=== PATIENT | male | born 1950 | race African-American/Black ===

== ENCOUNTER 2019-10-04 18:40 | Emergency (ER) | payer MEDICARE, MEDICAID ==
[2019-10-04 19:23] LABS: ABSOLUTE EOSINOPHILS # (AUTO) 0.1 10^3/uL (0.0-0.6); PLATELET COUNT 228 10^3/uL (150-450); TOTAL CELLS COUNTED % (AUTO) 100 %
[2019-10-04 19:28] LABS: APPEARANCE,URINE CLEAR; BILIRUBIN,URINE NEGATIVE (NEGATIVE); COLOR,URINE YELLOW; GLUCOSE, URINE NEGATIVE (NEGATIVE); KETONES,URINE NEGATIVE (NEGATIVE); LEUKOCYTE ESTERASE,URINE NEGATIVE (NEGATIVE); NITRITE,URINE NEGATIVE (NEGATIVE); PROTEIN,URINE NEGATIVE (NEGATIVE); URINE SPECIFIC GRAVITY 1.004; UROBILINOGEN,URINE NEGATIVE mg/dL (<2.0)
[2019-10-04 19:32] LABS: ABSOLUTE LYMPHOCYTES (AUTO) 1.6 10^3/uL (0.5-4.7); ABSOLUTE MONOCYTES (AUTO) 0.5 10^3/uL (0.1-1.4); ABSOLUTE NEUT (AUTO) 2.6 10^3/uL (1.7-8.2); HEMATOCRIT 41.5 % (37.9-51.0); HEMOGLOBIN 14.5 g/dL (13.5-17.0); LYMPHOCYTES % (AUTO) 32.8 % (13-45); MEAN CORPUSCULAR HEMOGLOBIN 35.7 pg (27.0-33.4); MEAN CORPUSCULAR HGB CONC 35.1 g/dL (32.0-36.0); MEAN CORPUSCULAR VOLUME 102 fl (80-97); MONOCYTES % (AUTO) 10.1 % (3-13); RED BLOOD COUNT 4.07 10^6/uL (4.35-5.55); RED CELL DISTRIBUTION WIDTH 14.6 % (11.5-14.0); SEGMENTED NEUTROPHILS % (AUTO) 54.1 % (42-78); WHITE BLOOD COUNT 4.9 10^3/uL (4.0-10.5)
[2019-10-04 19:41] LABS: ALBUMIN 4.3 g/dL (3.5-5.0); ALKALINE PHOSPHATASE 95 U/L (38-126); ANION GAP 11 (5-19); ASPARTATE AMINO TRANSFERASE 131 U/L (17-59); BILIRUBIN,DIRECT 0.1 mg/dL (0.0-0.4); BILIRUBIN,TOTAL 0.2 mg/dL (0.2-1.3); BLOOD UREA NITROGEN 9 mg/dL (7-20); CALCIUM 9.9 mg/dL (8.4-10.2); CARBON DIOXIDE 24 mmol/L (22-30); CHLORIDE 108 mmol/L (98-107); CREATINE KINASE 133 U/L (55-170); GLUCOSE 77 mg/dL (75-110); POTASSIUM 3.8 mmol/L (3.6-5.0); TOTAL PROTEIN 7.8 g/dL (6.3-8.2)
[2019-10-04 19:53] LABS: CREATINE KINASE MB 1.66 ng/mL (<4.55); TROPONIN I 0.013 ng/mL
--- NOTE | 2019-10-04 20:43 | ER Document Report ---
ED General - General Chief Complaint: ETOH Abuse Stated Complaint: LEG WEAKNESS Time Seen by Provider: 10/04/19 20:21 TRAVEL OUTSIDE OF THE [place] IN LAST 30 DAYS: No - HPI Notes: Patient is a 68-year-old male with a history of alcohol abuse presents to the ED after he had been drinking all day complaining of having on and off feet pain that is been present since retired about 4 to 5 years ago. Patient states that he walks 10 to 20 miles per day. Patient states that his feet will become tingly on occasion. Patient states that he did have a fall 8 days ago in the bathroom where he fell to the side and hit the right frontal area on the commode. Patient states he did not lose consciousness. He has not had any pains or difficulty since that incident. He is able to eat and drink without difficulty. He is urinating normally and having normal bowel movements. Patient states that he is otherwise noncompliant with medicines and has not followed up with a family doctor, but has Medicare and is looking. Denies drug allergies. Patient states that he currently does not have any feet or leg bianca ns. Denies any headache, fever, neck pain, changes in vision/speech/mentation/hearing, URI, sore throat, chest pain, palpitations, syncope, cough, shortness of breath, wheeze, dyspnea, abdominal pain, nausea/vomiting/diarrhea, urinary retention, dysuria, hematuria, loss of control of bowel or bladder, saddle anesthesia, muscle paralysis/weakness, or rash. - Related Data Allergies/Adverse Reactions: No Known Allergies Allergy (Verified 10/04/19 18:58) Past Medical History - Social History Smoking Status: Current Every Day Smoker Chew tobacco use (# tins/day): No Frequency of alcohol use: Heavy Drug Abuse: None Family History: CVA, DM, Hyperlipidemia, Hypertension Patient has suicidal ideation: No Patient has homicidal ideation: No - Past Medical History Cardiac Medical History: Reports: Hx Hypercholesterolemia, Hx Hypertension Musculoskeletal Medical History: Reports Hx Arthritis, Reports Hx Musculoskeletal Deformity Traumatic Medical History: Reports: Hx Fractures - Immunizations Immunizations up to date: Yes Hx Diphtheria, Pertussis, Tetanus Vaccination: Yes - 2013 Review of Systems - Review of Systems -: Yes All other systems reviewed and negative Physical Exam - Vital signs Vitals: Resp Pulse Ox 14 98 10/04/19 18:49 10/04/19 18:49 - Notes Notes: PHYSICAL EXAMINATION: GENERAL: Well-appearing, well-nourished and in no acute distress. A&Ox4. Answers questions appropriately. HEAD: Atraumatic, normocephalic. Non-tender. No sepulveda sign or bogginess. No hematoma. EYES: Pupils equal round and reactive to light, extraocular movements intact, sclera anicteric, conjunctiva are normal. No nystagmus. No raccoon eyes. ENT: EAC clear b/l. TM's intact b/l without erythema, fluid, or perforation. Nares patent and without discharge. oropharynx clear without exudates. No tonsilar hypertrophy or erythema. Moist mucous membranes. No sinus tenderness. No hemotympanum. NECK: Normal range of motion, supple without lymphadenopathy. No rigidity/meningismus. No midline tenderness. LUNGS: Breath sounds clear to auscultation bilaterally and equal. No wheezes rales or rhonchi. HEART: Regular rate and rhythm without murmurs, rubs, gallops. ABDOMEN: Soft, nontender, nondistended abdomen. No guarding, no rebound. Normal bowel sounds present. No CVA tenderness bilaterally. Musculoskeletal: Ext b/l: FROM to passive/active. Strength 5+/5. No deficits noted. No bony tenderness of extremities. Extremities: No cyanosis, clubbing, or edema b/l. Peripheral pulses 2+. Capillary refill less than 3 seconds. No lower extremity asymmetry. Torsten negative bilaterally. NEUROLOGICAL: NIH 0. GCS 15. Cranial nerves grossly intact. Normal speech, normal gait. Normal sensory, motor exams. No ataxia. PSYCH: Normal mood, normal affect. SKIN: Warm, Dry, normal turgor, no rashes or lesions noted. Course - Re-evaluation Re-evalutation: 10/04/19 20:44 Patient is an afebrile, well-hydrated, 68-year-old male who presents to the ED with chronic b/l feet/leg pains, currently asymptomatic, and head injury 8 days ago without any residual symptoms. Vitals are acceptable without any significant tachycardia, tachypnea, or hypoxia. PE is otherwise unremarkable for any focal neurological deficits. NIH 0, GCS 15, cranial nerves grossly intact. Labs unremarkable. No further labs or imaging warranted at this time based on H&P. Pt has been eating really well in the room. Patient states that he would like to go home and has someone he can call for a ride. Pt is able to ambulate >4 steps w/o any instability. He is nontoxic-appearing and is tolerating p.o. without any difficulties. Low suspicion for any acute glaucoma, temporal arteritis, meningitis, intracranial hemorrhage, ischemic stroke, DVT, or fracture at this time. Patient is aware that this condition can change from initial presentation and that he needs to monitor symptoms closely for any acute changes. Recheck with your PCM in 3-5 days. Return to the ED with any worsening/concerning symptoms otherwise as reviewed in discharge. Patient is in agreement. - Vital Signs Vital signs: Temp Pulse Resp BP Pulse Ox 97.4 F 14 98 10/04/19 18:57 10/04/19 18:49 10/04/19 18:49 - Laboratory Result Diagrams: 10/04/19 19:07 10/04/19 19:07 Laboratory results interpreted by me: 10/04/19 10/04/19 19:07 19:07 RBC 4.07 L MCV 102 H MCH 35.7 H RDW 14.6 H Chloride 108 H AST 131 H ALT 74 H Discharge - Discharge Clinical Impression: Bilateral foot pain, Alcohol abuse with intoxication, uncomplicated Condition: Stable Disposition: HOME, SELF-CARE Additional Instructions: Rest, Ice, Compression, Elevation Tylenol/ibuprofen as needed Avoid alcohol Light stretches daily Strength exercises as able Moist heat and massage may help F/u with your PCP in 3-5 days for a recheck Consider consult(s) with Orthopedics/physical therapy for ongoing/worsening symptoms Return to the ED with any worsening symptoms and/or development of fever, headache, chest pain, palpitations, syncope, shortness of breath, trouble breathing, abdominal pain, n/v/d, muscle weakness/paralysis, numbness/tingling, swelling, redness, or other worsening symptoms that are concerning to you. Referrals: [facility] [Provider Group] - Follow up as needed FELICITAS MARES MD [ACTIVE STAFF] - Follow up as needed RICH GUERIN MD [ACTIVE STAFF] - Follow up as needed
[2019-10-04 20:57] VITALS: BP 126/69
--- NOTE | 2019-10-05 00:26 | EKG REPORT ---
SEVERITY:- ABNORMAL ECG - SINUS RHYTHM LEFT ANTERIOR FASCICULAR BLOCK MINIMAL ST ELEVATION, ANTEROLATERAL LEADS : Confirmed by: Jorge Pina 05-Oct-2019 00:25:24
== END 2019-10-04 21:18 | disposition home or self-care (01) ==
LOC: ER 18:40
DX: M79.672 Pain in left foot (principal); M79.671 Pain in right foot; F10.129 Alcohol abuse with intoxication, unspecified; F17.200 Nicotine dependence, unspecified, uncomplicated; E78.00 Pure hypercholesterolemia, unspecified; I10 Essential (primary) hypertension
CPT/HCPCS: 36415; 80053; 81001; 82550; 82553; 84484; 85025; 93005; 93010; 99284

== ENCOUNTER 2019-12-17 19:38 | Emergency (ER) | payer MEDICARE, MEDICAID ==
--- NOTE | 2019-12-17 22:02 | ER Document Report ---
ED General - General Chief Complaint: General Weakness Stated Complaint: WEAKNESS Time Seen by Provider: 12/17/19 21:53 Information source: Patient Notes: 69-year-old male patient presenting to the emergency department chief complaint of EtOH intoxication and generalized weakness. Patient reports he recently lost to people who are close to him and he has been drinking more than usual. He denies any suicidal or homicidal ideation. He states that he has been upset over his recent losses and he has not been eating much over the past 3 days. He thinks his blood sugar may have dropped today because of this. He states that he feels well now and has no physical complaints. TRAVEL OUTSIDE OF THE [place] IN LAST 30 DAYS: No - Related Data Allergies/Adverse Reactions: No Known Allergies Allergy (Verified 10/04/19 18:58) Past Medical History - General Information source: Patient - Social History Smoking Status: Current Some Day Smoker Family History: CVA, DM, Hyperlipidemia, Hypertension Patient has homicidal ideation: No - Past Medical History Cardiac Medical History: Reports: Hx Hypercholesterolemia, Hx Hypertension Musculoskeletal Medical History: Reports Hx Arthritis, Reports Hx Musculoskeletal Deformity Traumatic Medical History: Reports: Hx Fractures - Immunizations Immunizations up to date: Yes Hx Diphtheria, Pertussis, Tetanus Vaccination: Yes - 2013 Review of Systems - Review of Systems Constitutional: Weakness -: Yes All other systems reviewed and negative Physical Exam - Vital signs Vitals: Temp 97.8 F 12/17/19 20:17 - Notes Notes: PHYSICAL EXAMINATION: GENERAL: No acute distress. HEAD: Atraumatic, normocephalic. EYES: Pupils equal round and reactive to light, extraocular movements intact, sclera anicteric, conjunctiva are normal. ENT: Nares patent, oropharynx clear without exudates. Moist mucous membranes. NECK: Normal range of motion, supple without lymphadenopathy LUNGS: Breath sounds clear to auscultation bilaterally and equal. No wheezes rales or rhonchi. HEART: Regular rate and rhythm without murmurs ABDOMEN: Soft, nontender, nondistended abdomen. No guarding, no rebound. No masses appreciated. Musculoskeletal: Normal range of motion, no pitting or edema. No cyanosis. NEUROLOGICAL: Cranial nerves grossly intact. Normal speech. Normal sensory, motor exams PSYCH: Normal mood, normal affect. SKIN: Warm, Dry, normal turgor, no rashes or lesions noted. Course - Re-evaluation Re-evalutation: 12/17/19 22:15 Patient appears well, nontoxic, vital signs within normal limits. Patient had a hypoglycemic episode earlier today. He has been drinking alcohol today. He denies any physical complaints. He is alert, oriented and able to answer all questions appropriately. Labs pending. As long as labs and EKG are unremarkable will discharge patient home with a sober ride which patient states he can provide. 12/17/19 23:31 EKG reviewed by me, normal sinus, no ST segment elevations or depressions to suggest ischemia. Labs reviewed, patient has mildly elevated LFTs and also elevated EtOH. Patient again is alert, oriented and answering all questions appropriately. His family member who is sober is on their way to pick him up and nursing staff will confirm that patient has a sober ride prior to discharging him from the room. - Vital Signs Vital signs: Temp Pulse Resp BP Pulse Ox 98.4 F 90 16 120/59 L 97 12/17/19 20:28 12/17/19 20:28 12/17/19 20:28 12/17/19 20:28 12/17/19 20:28 - Laboratory Result Diagrams: 12/17/19 20:16 12/17/19 20:16 Laboratory results interpreted by me: 12/17/19 12/17/19 20:16 20:16 RBC 3.86 L MCV 102 H MCH 35.6 H Carbon Dioxide 19 L Glucose 126 H AST 178 H ALT 99 H - Diagnostic Test Radiology reviewed: Image reviewed - EKG Interpretation by Me EKG shows normal: Sinus rhythm Rate: Normal When compared to previous EKG there are: No significant change Discharge - Discharge Clinical Impression: Acute alcohol intoxication Qualifiers: Complication of substance-induced condition: uncomplicated Qualified Code(s): F10.920 - Alcohol use, unspecified with intoxication, uncomplicated Condition: Stable Disposition: HOME, SELF-CARE Additional Instructions: Follow-up with your primary care provider. Stop drinking in excess. Increase your oral intake.
[2019-12-17 22:32] LABS: ALBUMIN 4.1 g/dL (3.5-5.0); ALCOHOL 246 mg/dL (NONE DETECTED); ALKALINE PHOSPHATASE 99 U/L (38-126); ANION GAP 12 (5-19); ASPARTATE AMINO TRANSFERASE 178 U/L (17-59); BILIRUBIN,TOTAL 0.3 mg/dL (0.2-1.3); BLOOD UREA NITROGEN 12 mg/dL (7-20); CALCIUM 9.4 mg/dL (8.4-10.2); CARBON DIOXIDE 19 mmol/L (22-30); CHLORIDE 106 mmol/L (98-107); GLUCOSE 126 mg/dL (75-110); POTASSIUM 3.8 mmol/L (3.6-5.0); TOTAL PROTEIN 7.4 g/dL (6.3-8.2)
[2019-12-17 22:58] LABS: ABSOLUTE BASOPHILS # (AUTO) 0.1 10^3/uL (0.0-0.2); ABSOLUTE EOSINOPHILS # (AUTO) 0.1 10^3/uL (0.0-0.6); ABSOLUTE MONOCYTES (AUTO) 0.3 10^3/uL (0.1-1.4); ABSOLUTE NEUT (AUTO) 7.2 10^3/uL (1.7-8.2); BASOPHILS % (AUTO) 0.7 % (0-2); EOSINOPHILS % (AUTO) 0.6 % (0-6); HEMATOCRIT 39.5 % (37.9-51.0); HEMOGLOBIN 13.7 g/dL (13.5-17.0); LYMPHOCYTES % (AUTO) 20.5 % (13-45); MEAN CORPUSCULAR HEMOGLOBIN 35.6 pg (27.0-33.4); MEAN CORPUSCULAR HGB CONC 34.8 g/dL (32.0-36.0); MEAN CORPUSCULAR VOLUME 102 fl (80-97); MONOCYTES % (AUTO) 3.5 % (3-13); PLATELET COUNT 241 10^3/uL (150-450); RED BLOOD COUNT 3.86 10^6/uL (4.35-5.55); RED CELL DISTRIBUTION WIDTH 13.6 % (11.5-14.0); SEGMENTED NEUTROPHILS % (AUTO) 74.7 % (42-78); TOTAL CELLS COUNTED % (AUTO) 100 %; WHITE BLOOD COUNT 9.6 10^3/uL (4.0-10.5)
[2019-12-17 23:42] LABS: APPEARANCE,URINE CLEAR; BILIRUBIN,URINE NEGATIVE (NEGATIVE); COLOR,URINE YELLOW; GLUCOSE, URINE NEGATIVE (NEGATIVE); KETONES,URINE NEGATIVE (NEGATIVE); LEUKOCYTE ESTERASE,URINE NEGATIVE (NEGATIVE); NITRITE,URINE NEGATIVE (NEGATIVE); PROTEIN,URINE NEGATIVE (NEGATIVE); URINE SPECIFIC GRAVITY 1.005; UROBILINOGEN,URINE NEGATIVE mg/dL (<2.0)
[2019-12-18 00:39] VITALS: BP 127/61
--- NOTE | 2019-12-18 07:11 | EKG REPORT ---
SEVERITY:- ABNORMAL ECG - SINUS RHYTHM LEFT ANTERIOR FASCICULAR BLOCK PROBABLE LATERAL INFARCT, OLD : Confirmed by: Aroldo Aden MD 18-Dec-2019 07:10:30
== END 2019-12-18 00:39 | disposition home or self-care (01) ==
LOC: ER 19:38
DX: F10.920 Alcohol use, unspecified with intoxication, uncomplicated (principal); R53.1 Weakness; E16.2 Hypoglycemia, unspecified; F17.200 Nicotine dependence, unspecified, uncomplicated; I10 Essential (primary) hypertension
CPT/HCPCS: 36415; 80053; 80307; 81001; 82962; 84484; 85025; 93005; 93010; 99285